=== PATIENT | female | born 1995 | race Caucasian/White ===

== ENCOUNTER 2020-01-18 13:26 | Emergency (ER) | payer OTHER, SELFPAY ==
[2020-01-18 13:35] VITALS: BP 136/87; PULSE 77; RESP 16; TEMP 37.1; O2SAT 98
--- NOTE | 2020-01-18 13:46 | ED.FEMALEGU ---
HPI - Female Genitourinary General Chief complaint: Urogenital-Female Stated complaint: 11wks preg; vaginal pain Time Seen by Provider: 01/18/20 13:45 Source: patient Mode of arrival: ambulatory Limitations: no limitations History of Present Illness HPI Narrative: The pt is a 24 y/o female who presents to the ED with c/o vaginal pain that began 2 days ago. The pt states that she is 11 weeks and having sharp pain on the rt side of her vagina. She describes this as feeling like something is sticking out and states that it is worsened with sitting. The pt denies vaginal bleeding, vaginal discharge, nausea, or vomiting. She says she has not been having intercourse and has not introduced anything into her vagina. The pt is A0 and has a SHx of a . Her [facility] DISPATCHER is Dr. Yanique Vieyra and she last had an US on the . MD elicited complaint: other (vaginal pain) Onset (ago): day(s) (2) Location of symptoms: vaginal (rt side of vagina) Vaginal discharge: none Vaginal bleeding: none Associated symptoms: denies other symptoms Related Data Home Medications Medication Instructions Recorded Confirmed No Home Medications 01/18/20 01/18/20 Allergies Allergy/AdvReac Type Severity Reaction Status Date / Time Sulfa (Sulfonamide Allergy Unknown Unknown Verified 01/18/20 13:39 Antibiotics) Review of Systems Review of Systems: All systems reviewed & are unremarkable except as noted in HPI and below Gastrointestinal: Gastrointestinal: Denies nausea and Denies vomiting Genitourinary: Genitourinary: Denies abnormal vaginal bleeding, Denies vaginal discharge and Reports other (vaginal pain) [facility] Past Medical History Medical History Asthma Surgical History Surgical History Previous section Family History Family History Father Hypertension Social History Social History Smoking status: Current every day smoker Tobacco type: cigarettes Alcohol intake: never Substance use type: marijuana Other substance usage details: States that she has also used methamphetamines. Last use: Roughly 1 month ago. Gender identity (if verbalized by the patient): Female Exam Const: General: no acute distress and alert Orientation/consciousness: patient oriented x3 HENMT: Mouth: Yes Normal oral and palatal mucosa present and Yes lip normal Throat: posterior oropharynx normal and tonsils normal Eyes: Conjunctivae: conjunctivae normal Pupils: Equal, round and reactive pupils present Resp: Effort & Inspection: normal respiratory effort GI: Inspection: non-distended GI Palp: Yes Soft to palpation, No Tenderness to palpation present (GI) and No Guarding due to palpation present (GI) : Speculum Exam - Vagina: abnormal vaginal discharge yellow Speculum Exam - Cervix: normal appearance of the cervix and Cervical os closed Other: there appears to be redness at urethral meatus at location at his pain Course Course Emergency Course: Patient presented with pain that appears to be located at her urethral meatus with redness and tenderness. PAtient also has copious amounts of cervical discharge. I reviewed patient's chart and she has history positive chlamydia so will treat presumptively and she will follow up with OBGYN Vital Signs Vital signs: Vital Signs Temperature 98.7 F 01/18/20 13:35 Pulse Rate 77 01/18/20 13:35 Respiratory Rate 16 01/18/20 13:35 Blood Pressure 136/87 01/18/20 13:35 Pulse Oximetry 98 01/18/20 13:35 Temperature 98.7 F 01/18/20 13:35 Pulse Rate 77 01/18/20 13:35 Respiratory Rate 16 01/18/20 13:35 Blood Pressure 136/87 01/18/20 13:35 Pulse Oximetry 98 01/18/20 13:35 MDM - Female Genitourinary Lab Data Labs: Lab Results
[2020-01-18 15:13] LABS: Add Urine Microscopic? NO; Appearance Urine Clear (Clear); Bilirubin Urine Negative (Negative); Blood Urine Negative (Negative); Color Urine Yellow (Yellow); Glucose Urine UA Negative (Negative); Ketones Urine Negative (Negative); Leukocyte Esterase Ur Negative LEU/UL (Negative); Nitrate Urine Negative (Negative); Protein Urine Negative (Negative); Specific Grav Ur 1.013 (1.001-1.035); Urobilinogen Urine Negative mg/dL (<2.0)
[2020-01-18] MEDS: LIDOCAINE HCL 1% LOCAL INJ 20 ML VIAL (16:05)
[2020-01-18] MEDS: AZITHROMYCIN 250 MG TABLET 1000 MG PO (16:05)
[2020-01-18] MEDS: cefTRIAXone 250 MG VIAL IM (16:05)
== END 2020-01-18 16:07 | disposition home or self-care (01) ==
PROVIDERS: Emergency Provider General Practice; Family Provider Internal Medicine
DX: O23.21 Infections of urethra in pregnancy, first trimester (principal); O99.511 Diseases of the respiratory system complicating pregnancy, first trimester; J45.909 Unspecified asthma, uncomplicated; O99.331 Smoking (tobacco) complicating pregnancy, first trimester; F17.210 Nicotine dependence, cigarettes, uncomplicated; Z3A.11 11 weeks gestation of pregnancy
CPT/HCPCS: 81003; 87070; 87491; 87591; 87808; 96372; 99284; A9270; J0696

== ENCOUNTER 2020-07-07 06:48 | Observation (INO) | payer OTHER, SELFPAY ==
[2020-07-07 07:07] VITALS: BMI 46.5
--- NOTE | 2020-07-07 07:08 | OBADM ---
This patient, Genie Ching, admitted to the OB room OB Post 115 for observation. Patient/family oriented to hospital policies and general routines including ID bracelet, bed and alarms, visiting hours, pain management, procedures, bathroom and other care routines, personal items, smoking policy, room service/diet, and visiting hours. Patient/Family are encouraged to report perceived risks to care and to ask questions if they do not understand what they are told or what they should do.
[2020-07-07 07:16] VITALS: BP 121/73; PULSE 66
[2020-07-07] MEDS: ACETAMINOPHEN 500 MG TABLET 1000 MG PO (07:27)
[2020-07-07 07:28] LABS: Add Urine Microscopic? YES; Appearance Urine Cloudy (Clear); Bacteria Urine Trace /hpf; Bilirubin Urine Negative (Negative); Blood Urine Negative (Negative); Color Urine Yellow (Yellow); Glucose Urine UA Negative (Negative); Ketones Urine Negative (Negative); Leukocyte Esterase Ur Negative LEU/UL (NEGATIVE); Mucus Urine Rare /lpf; Nitrate Urine Negative (Negative); Protein Urine Negative (Negative); RBC Urine 0-2 /hpf (0-2); Squamous Epithelial Cell Urine Many /hpf (Few); Urobilinogen Urine Negative mg/dL (<2.0)
[2020-07-07 07:31] VITALS: BP 119/62; PULSE 65
[2020-07-07 07:46] VITALS: BP 110/56; PULSE 58
[2020-07-07 08:01] VITALS: BP 120/64; PULSE 70
--- NOTE | 2020-07-07 08:12 | P.PNOB_ITS ---
OB - Triage/Final Diagnosis Visit Information Date of evaluation: 07/07/20 Reason for evaluation: threatened labor Evaluation Baseline heart rate: 135 Variability: Moderate (11-25) monitor accelerations: Present monitor decelerations: None Laboratory results: Laboratory Tests 07/07/20 07:16 Urine Color Yellow Urine Appearance Cloudy H Urine pH 6.0 Ur Specific [place] 1.020 Urine Protein Negative Urine Glucose (UA) Negative Urine Ketones Negative Ur Blood (Man) Negative Urine Nitrate Negative Urine Bilirubin Negative Urine Urobilinogen Negative Ur Leukocyte Esterase Negative Urine RBC 0-2 Urine WBC 4-6 H Ur Squamous Epith Cells Many H Urine Bacteria Trace Urine Mucus Rare Vital signs: Vital Signs - 24 hr 07/07/20 07:16 07/07/20 07:31 07/07/20 07:46 Pulse Rate 66 65 58 L Blood Pressure 121/73 119/62 110/56 L 07/07/20 08:01 Pulse Rate 70 Blood Pressure 120/64
[2020-07-07 08:16] VITALS: BP 120/88; PULSE 66
== END 2020-07-07 08:29 | disposition home or self-care (01) ==
PROVIDERS: Admitting Provider Student in an Organized Health Care Education/Training Program; Visit Provider Student in an Organized Health Care Education/Training Program
DX: O47.9 False labor, unspecified (principal); Z3A.00 Weeks of gestation of pregnancy not specified
CPT/HCPCS: 81001; 87086; A9270; G0378; G0379

== ENCOUNTER 2020-07-16 12:29 | Observation (INO) | payer OTHER, SELFPAY ==
[2020-07-16 13:00] VITALS: BP 111/63; PULSE 91; BMI 46.5
[2020-07-16 13:15] VITALS: BP 106/63; PULSE 117
[2020-07-16 13:30] VITALS: BP 117/58; PULSE 98
[2020-07-16 13:45] VITALS: BP 97/55; PULSE 94
[2020-07-16 14:00] VITALS: BP 104/59; PULSE 99
[2020-07-16 14:16] VITALS: BP 98/60; PULSE 99
--- NOTE | 2020-07-16 14:52 | OBADM ---
This patient, Genie Ching, admitted to the OB room OB Post 117 for observation. Patient/family oriented to hospital policies and general routines including ID bracelet, bed and alarms, visiting hours, pain management, procedures, bathroom and other care routines, personal items, smoking policy, room service/diet, and visiting hours. Patient/Family are encouraged to report perceived risks to care and to ask questions if they do not understand what they are told or what they should do.
--- NOTE | 2020-07-30 09:23 | PM.OBTRLD ---
OB - Triage/Final Diagnosis Visit Information Date of evaluation: 07/16/20 Reason for evaluation: threatened labor
== END 2020-07-16 14:36 | disposition home or self-care (01) ==
PROVIDERS: Admitting Provider Student in an Organized Health Care Education/Training Program; Visit Provider Student in an Organized Health Care Education/Training Program
DX: O26.899 Other specified pregnancy related conditions, unspecified trimester (principal); R10.9 Unspecified abdominal pain; Z3A.00 Weeks of gestation of pregnancy not specified
CPT/HCPCS: G0378; G0379

== ENCOUNTER 2020-07-24 11:10 | Outpatient (CLI) | payer OTHER, SELFPAY ==
[2020-07-24 11:50] LABS: Hematocrit 34.6 % (37.0-47.0); Hemoglobin 11.7 g/dL (12.0-15.0); Mean Corpuscular HGB Conc 33.8 g/dl (32-36); Mean Corpuscular Hemoglobin 29.5 pg (26-34); Mean Corpuscular Volume 87.4 fl (80-100); Mean Platelet Volume 11.1 fl (7.4-10.4); Platelet Count Result 177 k/mm3 (150-375); Red Blood Count 3.96 M/mm3 (4.2-5.4); Red Cell Distribution Width 13.3 % (11.5-14.5); White Blood Count 9.4 K/mm3 (4.5-10.0)
[2020-07-26 11:33] LABS: Rapid Plasma Reagin Non-Reactive (NonReactive)
== END 2020-07-24 11:11 | disposition home or self-care (01) ==
PROVIDERS: Visit Provider Student in an Organized Health Care Education/Training Program
DX: Z01.818 Encounter for other preprocedural examination (principal)
CPT/HCPCS: 36415; 85027; 86592; 86850; 86900; 86901

== ENCOUNTER 2020-07-26 09:52 | Inpatient (IN) | payer OTHER, SELFPAY ==
[2020-07-26] VITALS (42 sets, daily range): BP systolic 84–126; BP diastolic 48–78; PULSE 48–70; RESP 15–18; TEMP 36.1–36.6; O2SAT 97–100; BMI 46.5
--- NOTE | 2020-07-26 09:27 | WPDANESEPP ---
Anes - Eval Pre Procedure Procedure: Operation Date: 07/26/20 12:00 Proposed Procedures p Repeat Section - Mark Ortiz MD Date/Time: 07/26/20 09:27 Pre Op Diagnosis: Prior Patient Data Age: 24 Gender: F Height: Weight: Allergies Allergy/AdvReac Type Severity Reaction Status Date / Time Sulfa (Sulfonamide Allergy Unknown Unknown Verified 01/18/20 13:39 Antibiotics) Home Medications Medication Instructions Recorded Confirmed Type No Home Medications 01/18/20 07/07/20 History Patient hx anesthesia problems: none Family hx anesthesia problems: none PMFSH Past Medical History Medical History (Updated 07/26/20 @ 09:29 by David Coats CRNA) Asthma Polysubstance abuse Tobacco abuse Surgical History Surgical History Previous section Family History Family History Father Hypertension Social History Social History Smoking status: Current every day smoker Tobacco type: cigarettes Alcohol intake: never Substance use type: marijuana Other substance usage details: States that she has also used methamphetamines. Last use: Roughly 1 month ago. Gender identity (if verbalized by the patient): Female Exam Day of Procedure 07/26/20 09:27 Patient weight: overweight Neurological: alert and oriented
--- NOTE | 2020-07-26 09:32 | PM.IMHP ---
H&P: HPI History of Present Illness Date/Time: 07/26/20 09:32 Chief complaint: Prior Narrative: Genie Ching is a 24 year old female at 39w0d who presents for repeat section. Pt has been complicated by history of prior , IVDU, THC use, rubella non-immune status. She had an elevated GCT but a normal GTT. She denies regular contractions, vaginal bleeding, or leakage of fluid. She endorses good movement. Review of Systems Cardiovascular: Cardiovascular: Denies chest pain, Denies leg edema, Denies palpitations, Denies dyspnea and Denies dyspnea on exertion Respiratory: Respiratory: Denies cough, Denies dyspnea and Denies dyspnea on exertion Gastrointestinal: Gastrointestinal: Denies abdominal pain, Denies constipation, Denies diarrhea, Denies nausea and Denies vomiting Genitourinary: Genitourinary: Denies hematuria, Denies urinary frequency, Denies dysuria, Denies pelvic pain, Denies urinary incontinence and Denies vaginal discharge Neurologic: Reports system reviewed and no additional complaints, except as documented Psychiatric: Psychiatric: Reports no additional psychiatric complaints Endocrine: Endocrine: Denies palpitations PMF Past Medical History Medical History (Updated 07/26/20 @ 09:36 by Mark Ortiz MD) Asthma Polysubstance abuse Tobacco abuse Surgical History Surgical History Previous section Family History Family History Father Hypertension Social History Social History Smoking status: Current every day smoker Tobacco type: cigarettes Alcohol intake: never Substance use type: marijuana Other substance usage details: States that she has also used methamphetamines. Last use: Roughly 1 month ago. Gender identity (if verbalized by the patient): Female Meds Home Medications and Allergies Home Medications Medication Instructions Recorded Confirmed Type No Home Medications 01/18/20 07/07/20 History Allergies Allergy/AdvReac Type Severity Reaction Status Date / Time Sulfa (Sulfonamide Allergy Unknown Unknown Verified 01/18/20 13:39 Antibiotics) Exam Const: General: no acute distress Eyes: EOM: EOMs intact bilaterally Neck: Neck: supple Thyroid: thyroid normal Chest: Breast/axilla inspection: normal inspection of the breasts Breast/axilla palpation: normal palpation of the breasts, normal palpation of the axillae and no axillary lymphadenopathy Resp: Effort & Inspection: normal respiratory effort Auscultation: clear to auscultation bilaterally Cardio: Rate: regular rate Rhythm: regular rhythm GI: Inspection: non-distended GI Palp: Yes Soft to palpation, No Tenderness to palpation present (GI) and No Guarding due to palpation present (GI) Auscultation: normal bowel sounds Other: Gravid, non-tender : General: No bladder normal to palpation External Female Exam: normal external appearance Speculum Exam - Vagina: normal vaginal discharge and No vaginal bleeding Speculum Exam - Cervix: nontender Bimanual exam- vagina & uterus: No bladder normal to palpation, No Cervical tenderness present and other (Gravid, non-tender) OB/external & speculum: No vaginal bleeding Skin: General skin exam: normal color and no rashes or lesions noted Neuro: Cognition (Neuro): normal cognition Speech: normal speech Extrem: General: normal to inspection and no edema Psych: Mental Status: mental status grossly normal Affect: normal affect Assessment and Plan Assessment and plan (1) Supervision of high risk , unspecified, third trimester: Code(s): O09.93 - Supervision of high risk , unspecified, third trimester Status: Acute Assessment and Plan: 24 yo at 39w0d prior c/s-desires repeat Rh+
[2020-07-26] MEDS: LACTATED RINGERS 1,000 ML 125 ML IV CONT ×2 (10:58→12:30)
--- NOTE | 2020-07-26 12:00 | LDADM ---
This patient, Genie Ching, was admitted to OB Post 116 on 07/26/20 at 09:52. Plans for labor, pain management and were discussed with patient. Patient/family oriented to hospital policies and general routines including ID bracelet, bed and alarms, visiting hours, pain management, procedures, bathroom and other care routines, personal items, smoking policy, room service/diet and guest tray routines, infant security routines, call light, and visiting hours. Patient/Family are encouraged to report perceived risks to care and to ask questions if they do not understand what they are told or what they should do. See OBIX for further documentation.
--- NOTE | 2020-07-26 12:17 | WPDANESEFPP ---
Anes - Eval Final PreProcedure Day of Procedure 07/26/20 12:17 Patient weight: morbidly obese Heart: regular rate and rhythm Lungs: clear to auscultation Airway: Mallampati scale class II Neurological: alert and oriented Last oral intake: >/= 8 hours ASA classification: III Emergent: no Anesthetic plan: proceed Anesthesia type and monitoring: regional spinal and standard monitoring Informed Consent: The patient's anesthetic plan and its attendant risks and benefits were discussed with the patient/family/POA. Questions were solicited and answers provided to the satisfaction of the patient/family/POA.
[2020-07-26] MEDS: ceFAZolin 2 GM/D5W 50 ML 2 GM/50 ML BAG IVPB (12:30)
[2020-07-26 13:17] LABS: Amphetamine Screen Urine Negative (Negative); Barbiturate Screen Urine Negative (Negative); Benzodiazepines Screen Urine Negative (Negative); Cannabinoid Screen Urine Positive (Negative); Cocaine Screen Urine Negative (Negative); Methadone Screen Urine Negative (Negative); Opiate Screen Urine Negative (Negative); Phencyclidine Screen Urine Negative (Negative)
[2020-07-26] MEDS: KETOROLAC 30 MG/ML VIAL (*BKC) IV PUSH ×2 (13:55→19:44)
--- NOTE | 2020-07-26 13:55 | PM.PROC ---
Procedure Note - Detailed Date of procedure: 07/26/20 Pre-op diagnosis: Repeat C section prior c/section x1 Post-op diagnosis: same Procedure performed: repeat low transverse section Description of procedure: The patient was taken to the operating room where epidural anesthesia was found to be adequate. She was then prepped and draped in the usual sterile fashion in the dorsal supine position with a leftward tilt. A Pfannenstiel skin incision was then made with the scalpel and carried through to the underlying layer of fascia. The fascia was then incised in the midline and the incision extended laterally with the Sanchez scissors. The superior aspect of the fascia was then grasped with the Antonina clamps, elevated, and the underlying rectus muscles dissected off bluntly and sharply. Attention was then turned to the inferior aspect of this incision which, in a similar fashion, was grasped, tented up with the Antonina clamps, and the rectus muscles dissected off both bluntly and sharply. The rectus muscles were then in the midline, and the peritoneum identified, tented up, and entered sharply with the Metzenbaum scissors. The peritoneal incision was then extended superiorly and inferiorly with good visualization of the bladder. The peritoneum and preperitoneal adipose tissue were intimately adherent to the rectus muscles. This adhesions was dissected off with Bovie cautery. The bladder blade was then inserted and the vesicouterine peritoneum identified, grasped with the pick-ups and entered sharply with the Metzenbaum scissors. This incision was then extended laterally and the bladder flap created digitally. The bladder blade was then reinserted and the lower uterine segment incised in a low, transverse fashion with the scalpel. The uterine incision was then extended laterally with the bandage scissors. The bladder blade was removed and the ?s head delivered atraumatically. The nose and mouth were suctioned with the bulb suction, and the remainder of the infant was delivered atraumatically. The cord was clamped and cut. The infant was handed off to the waiting pediatricians (staff). Cord gasses were sent. The placenta was then removed manually, the uterus exteriorized, and cleared of all clots and debris. The uterine incision was repaired with 0 monocryl in a running, locking fashion. A second imbricating layer of 0-monocryl was also placed. The uterus was returned to the abdomen. The uterus was then reinspected to ensure hemostasis as were all subfascial tissues. The peritoneal adipose tissue was reduced through the midlilne incision. The muscles were re-approximated with 3-0 vicryl with interuptted mattress sutures. The fascia was reapproximated with 0 vicryl in a running fashion. The subcutaneous tissue was reapproximated using 3-0 Vicryl in a running fashion. The skin was closed with 4-0 vicryl. The patient tolerated the procedure well. Sponge, lap and needle counts were correct times three. The patient was taken to the recovery room in stable condition. Anesthesia: epidural Surgeon: Mark Ortiz MD Estimated blood loss (mL): 630 IV fluids (mL): 1,000 Urine output (mL): 150 Drains: No Packing: No Pathology: none sent Complications: No immediate complications Condition: stable Disposition: floor ( ) Findings: dense adhesions of the peritoneum and peritoneal adipose tissue to the rectus muscles, normal appearing fallopian tubes and ovaries bilaterally
[2020-07-26] MEDS: LORATADINE 10 MG TABLET PO (14:38)
[2020-07-26] MEDS: OXYTOCIN 30 UNITS/NS 500 ML 30 UNITS/500 ML BAG 125 UNITS IV CONT (16:12)
--- NOTE | 2020-07-26 16:22 | PC.NURSE ---
Patient transferred to post room #286 per stretcher from labor and delivery. Support person present. Oriented to unit, room, information board, rooming in, admission packet and security measures. Patient verbalizes understanding.
[2020-07-26] MEDS: DEXTROSE 5%/0.45% SOD CHL 1,000 ML 125 ML IV CONT (19:45)
[2020-07-27] VITALS: BP 97/50; PULSE 68; RESP 16; TEMP 36.9; O2SAT 99
[2020-07-27 00:15] VITALS: PULSE 68; RESP 16; O2SAT 99
[2020-07-27 04:40] VITALS: BP 95/57; PULSE 54; RESP 16; TEMP 36.6; O2SAT 98
[2020-07-27 05:36] LABS: Basophils Absolute Auto 0.1 K/mm3 (0.0-0.1); Basophils Percent Auto 0.5 % (0.2-1.2); Eosinophils Absolute Auto 0.3 K/mm3 (0-0.3); Hematocrit 29.9 % (37.0-47.0); Hemoglobin 9.8 g/dL (12.0-15.0); Immature Granulocyte Absolute 0.07 K/mm3 (0.00-0.031); Immature Granulocyte Percent A 0.7 % (0-0.5); Lymphocytes Absolute Auto 1.86 K/mm3 (0.9-3.2); Lymphocytes Percent Auto 19.3 % (18.3-44.2); Mean Corpuscular HGB Conc 32.8 g/dl (32-36); Mean Corpuscular Hemoglobin 28.8 pg (26-34); Mean Corpuscular Volume 87.9 fl (80-100); Monocytes Percent Auto 10.5 % (2.6-8.5); Neutrophils Absolute Auto 6.3 K/mm3 (1.3-6.7); Platelet Count Result 153 k/mm3 (150-375); Red Cell Distribution Width 13.6 % (11.5-14.5); White Blood Count 9.6 K/mm3 (4.5-10.0)
--- NOTE | 2020-07-27 07:30 | P.PNOB_ITS ---
OB - PN: Subj Subjective Date/time seen: 07/27/20 07:30 Interval history: Patient doing well this AM. She is ambulating out of bed. Her batres catheter was removed but she has not voided spontaneously. She is tolerating PO. She reports adequate pain control. Patient comments: no complaints, pain well controlled, tolerating diet and flatus present OB - PN: Obj Data Labs CBC & Chem 7: 07/27/20 05:24 Labs: Laboratory Results - last 24 hr 07/26/20 07/27/20 12:44 05:24 WBC 9.6 RBC 3.40 L Hgb 9.8 L Hct 29.9 L MCV 87.9 MCH 28.8 MCHC 32.8 RDW 13.6 Plt Count 153 MPV 11.0 H Immature Gran % (Auto) 0.7 H Neut % (Auto) 66.0 Lymph % (Auto) 19.3 [place] % (Auto) 10.5 H Eos % (Auto) 3.0 Baso % (Auto) 0.5 Lymph # (Auto) 1.86 [place] # (Auto) 1.0 H Eos # (Auto) 0.3 Baso # (Auto) 0.1 Abs Immat Gran (auto) 0.07 H Absolute Neuts (auto) 6.3 Absolute Nucleated RBC 0.0 Nucleated RBC % 0.0 Urine Opiates Screen Negative Urine Methadone Screen Negative Ur Barbiturates Screen Negative Ur Phencyclidine Scrn Negative Ur Amphetamine Screen Negative U Benzodiazepines Scrn Negative Urine Cocaine Screen Negative U Cannabinoids Screen Positive A OB - PN A/P Plan day: 1 Plan: routine care Comments: patient doing well H/H stable afebrile, VSS incision covered with JUAN A dressing, small amount of blood saturation batres removed plan for circumcision today, parents consented continue routine post op care Time Spent With Patient Time: Total time spent is greater than 50% in coordination of care (as d ocumented) at patient's floor/unit and/or counseling patient: Time with patient: less than 15 minutes Review of Systems Constitutional: Constitutional: Reports no additional constitutional complaints Cardiovascular: Cardiovascular: Reports no additional cardiovascular complaints Respiratory: Respiratory: Reports no additional respiratory complaints Gastrointestinal: Gastrointestinal: Reports no additional gastrointestinal complaints Genitourinary: Genitourinary: Reports no additional female genitourinary complaints Exam Const: General: comfortable and no acute distress Resp: Effort & Inspection: normal respiratory effort Auscultation: clear to auscultation bilaterally Cardio: Rate: regular rate GI: GI Palp: Yes Soft to palpation, Yes Tenderness to palpation present (GI) (around incision ) and No Guarding due to palpation present (GI) Auscultation: normal bowel sounds Other: incision C/D/I, covered with Dermabond Psych: Appearance: grossly normal Mental Status: mental status grossly normal Affect: normal affect
--- NOTE | 2020-07-27 07:44 | WPDANLDNPN2 ---
Anes-Prog Note L&D-Neuraxial Date/Time: 07/27/20 07:44 Neuraxial medications: intrathecal PF morphine Opiod-related complaints: none Patient feedback: Patient satisfied with post-operative pain management.
--- NOTE | 2020-07-27 07:44 | WPDANLDPN2 ---
Anes-Prog Note L&D Date/Time: 07/27/20 07:44 Comfortable throughout: section Neuraxial method: spinal Epidural/Spinal procedure site: clean & non-tender Neuro status: Neuro function grossly intact. Cardiovascular status: normal Respiratory status: normal Airway patency: baseline Mental status: baseline Post-Op hydration status: normal Vital Signs: Last Vital Signs Temp 36.6 C 07/27/20 04:40 Pulse 54 L 07/27/20 04:40 Resp 16 07/27/20 04:40 BP 95/57 L 07/27/20 04:40 Pulse Ox 98 07/27/20 04:40 I/O: Intake & Output 07/26/20 07/26/20 07/27/20 15:59 23:59 07:59 Intake Total 2050 980 500 Output Total 780 450 650 Balance 1270 530 -150 Post-procedural complaints: none Patient feedback: Patient satisfied with anesthetic care.
[2020-07-27 07:45] VITALS: BP 95/53; PULSE 56; RESP 18; TEMP 37.3; O2SAT 97
[2020-07-27] MEDS: MULTIVIT/MIN/PREN/FOL AC/IRON TABLET 1 TAB PO (09:25)
[2020-07-27] MEDS: DOCUSATE SODIUM 100 MG CAPSULE PO ×2 (09:26→16:28)
[2020-07-27] MEDS: POLYSACCHARIDE IRON COMPLEX 150 MG CAPSULE PO ×2 (09:26→16:28)
[2020-07-27] MEDS: SIMETHICONE 80 MG TAB.CHEW PO ×3 (09:26→23:19)
[2020-07-27] MEDS: IBUPROFEN 600 MG TABLET PO ×3 (09:27→23:18)
--- NOTE | 2020-07-27 09:53 | PCCCNOTE ---
Care Coordination. Patient referred to CC for positive marijuana UDS and history of meth use. Baby's UDS was negative and meconium is pending. RN and doctor's documentation indicate pt. has used meth in last month. We did not have positive drug screens in records. Pt. denies this reporting she is on probation and has urine drug screens. She reports she has not used meth for a year. She has not had substance abuse treatment, but quit on her own. She reports having a 5 year old daughter that is living with pt's mother who has temporary guardianship since pt. had history of meth use. Pt. denies prior [facility] involvement. She plans to return home with /FOB, Eliezer. RN reports pt. did not have stable home, but pt. reports they have a one bedroom apartment and all necessary baby supplies. She is also setup with [facility] and reports having good family support. Spoke with Fran Zaldivar from [facility] hotline who will take pt.'s situation as report (Intake ID# [id number]). Will follow.
[2020-07-27 11:34] VITALS: BP 96/48; PULSE 56; RESP 16; TEMP 37.2; O2SAT 95
--- NOTE | 2020-07-27 13:00 | PC.NURSE ---
Mother called for assist with feeding. Mother reports her plans are to breast and bottle feed. Reviewed feeding cues, frequencies, duration of feedings, feeding elimination flow sheet, and signs of adequate intake. Demonstrated stimulation techniques to wake infant for feeding. Assisted with infant to breast. Reviewed positioning/alignment in cross cradle, holding breast in U hold and guided asymmetrical latch on. Discussed rational for each. Several attempts before was able to latch correctly. Infant nursed eagerly with steady draws and occasional swallowing followed by long pausing. Reviewed signs of a correct latch, effective nursing and suck swallow ratio. was able to maintain latch without discomfort to mother. Nipple care reviewed. Instructed mother to call out for RN assistance if she is unable to latch infant for feeding or she has discomfort with nursing. Suggested mother stimulate while feeding to keep infant awake and nursing effectively for increased intake and to assist with maintaining deep latch. Instructed feeding should be initiated three hours from start of last feeding or if feeding cues are noted before. Mother voiced understanding of information shared.
--- NOTE | 2020-07-27 17:35 | PC.NURSE ---
1520 . [facility] [employer] Material Inspector Kristopher Florez here to see pt. Report was given to him. He did not have his credentials. No DCFS ID badge, No Drivers Licence, No State ID. Called Jade Bernal RN to see what needed to be done? She stated to have him call his film processing shift supervisor to verify his Credentials. This RN called DCFS @ 1533 and verified his credentials. Kristopher wanted patient info from the chart without the proper credentials. This RN questioned whether or not this should be done. Kristopher stated that he has a [facility] release of information form he could have the patient sign, could we use that? Spoke with the district court administrator and we decided to use this form and give him the patient information. This form is on the hard chart. The patient voiced displeasure in not knowing that [facility] was going to make a visit. This RN apologized and stated that Care Coordination should have informed her of this.
[2020-07-27 20:05] VITALS: BP 116/50; PULSE 61; RESP 12; TEMP 37
[2020-07-28] MEDS: SIMETHICONE 80 MG TAB.CHEW PO ×2 (04:00→08:10)
--- NOTE | 2020-07-28 07:07 | P.DS_ITS ---
DS: Admitting Diagnosis Admitting Diagnosis Admitting Diagnosis: Repeat C section OB - DS: Summary OB Procedures : None OB Procedures Intrapartum: OB Procedures: : None Peripartum Data Infant Delivery Method: Section Procedures: Procedures Operation Date: 07/26/20 12:00 Actual Procedures Side Surgeon p Repeat Section Not Applicable Mark Ortiz MD complications: none Status at Discharge Functional status at discharge: independent ambulation Overall status at discharge: patient is progressing back to baseline Time Spent with Patient Time attestation: Total time spent providing and/or coordinating discharge services: Time spent: Less than 30 minutes Exam Const: General: comfortable and no acute distress Resp: Effort & Inspection: normal respiratory effort Auscultation: clear to auscultation bilaterally Cardio: Rate: regular rate GI: Inspection: non-distended GI Palp: Yes Soft to palpation, No Firmness to palpation present (GI), Yes Tenderness to palpation present (GI) (mild tenderness over incision ) and No Guarding due to palpation present (GI) Auscultation: normal bowel sounds Psych: Appearance: grossly normal Mental Status: mental status grossly normal Discharge Plan Discharge Discharging Clinician: Mark Ortiz Patient Disposition: Home, Self-Care Activity: may shower, as tolerated and pelvic rest Diet: regular Discharge Instructions: call or return for temperature >100.4, bleeding >2 pads/hr for 2 hrs, pain not controlled with medications, signs/symptoms of mastitis Patient Instructions: Antibiotic Form, Vaginal Delivery (DC) Stand Alone Forms: General Discharge Information Follow-up/Referrals: Mark Ortiz MD [Physician] - 1 Week Discharge Medications: New hydrocodone-acetaminophen 5-325 mg Tablet 1 tab PO Q3H PRN (Reason: Moderate Pain (4-6)) Qty: 28 RF: 0 Ifv-V-Haxosf Cream 1 applic topical PRN PRN (Reason: Sore Nipples) Qty: 1 RF: 0 docusate sodium 100 mg Capsule 100 mg PO BID Qty: 30 RF: 0 polysaccharide iron complex 150 mg iron Capsule 150 mg PO BIDWM Qty: 60 RF: 0 ibuprofen 600 mg Tablet 600 mg PO Q6H PRN (Reason: Cramping) Qty: 30 RF: 0 No Action No Home Medications RF: 0 Date of admission: 07/26/20 09:52 Primary Care Provider: PHYSICIAN,TRAINING GENERALIST Admitting Provider: Mark Ortiz Attending physician on admission: Mark Ortiz
--- NOTE | 2020-07-28 07:26 | WPDANLDPN2 ---
Anes-Prog Note L&D Date/Time: 07/28/20 07:26 Comfortable throughout: section Neuraxial method: spinal Epidural/Spinal procedure site: clean & non-tender Neuro status: Neuro function grossly intact. Cardiovascular status: normal Respiratory status: normal Airway patency: baseline Mental status: baseline Post-Op hydration status: normal Vital Signs: Last Vital Signs Temp 37.0 C 07/27/20 20:05 Pulse 61 07/27/20 20:05 Resp 12 07/27/20 20:05 BP 116/50 L 07/27/20 20:05 Pulse Ox 95 07/27/20 11:34 I/O: Intake & Output 07/27/20 07/27/20 07/28/20 15:59 23:59 07:59 Output Total 175 Balance -175 Post-procedural complaints: none Patient feedback: Patient satisfied with anesthetic care.
--- NOTE | 2020-07-28 07:26 | WPDANLDNPN2 ---
Anes-Prog Note L&D-Neuraxial Date/Time: 07/28/20 07:26 Neuraxial medications: intrathecal PF morphine Opiod-related complaints: none Patient feedback: Patient satisfied with post-operative pain management.
--- NOTE | 2020-07-28 07:50 | PC.NURSE ---
Mother is able to independently latch infant with appropriate positioning/alignment. She denies any nipple discomfort, is feeding as required and waking to feed if needed. has had several effective feedings in the past 24 hours, and is currently meeting outcomes for weight, output, jaundice and feeding frequencies. Mother chooses to bottle feed at times and will freq bottle feed after . Discussed stimulation and milk supply. Mother states she will continue to breast and bottle feed. Mother states she feels confident to continue current feeding plan at home. Reviewed transition to breast milk, signs of adequate intake, and engorgement/relief. Instructed to call ICP if intake/output less than required. Reviewed regular medications mother is taking. Information provided per Helga. Reviewed community resources on the [facility] website and in the Mom/Baby guide. Information on outpatient services provided. Mother has no further questions at this time.
[2020-07-28] MEDS: IBUPROFEN 600 MG TABLET PO ×2 (08:10→17:10)
[2020-07-28] MEDS: MULTIVIT/MIN/PREN/FOL AC/IRON TABLET 1 TAB PO (08:10)
[2020-07-28] MEDS: DOCUSATE SODIUM 100 MG CAPSULE PO ×2 (08:10→17:09)
[2020-07-28] MEDS: POLYSACCHARIDE IRON COMPLEX 150 MG CAPSULE PO ×2 (08:10→17:09)
[2020-07-28 08:20] VITALS: BP 120/63; PULSE 69; RESP 16; TEMP 36.8; O2SAT 100
--- NOTE | 2020-07-28 08:58 | PCCCNOTE ---
Care Coordination. Spoke with Julian Aguirre, gravity prospecting supervisor at [facility], who reports baby can go home with mother. He reports they will be starting services with family, but baby can be released home with mother and FOB. Per Xu Jordan with [facility], went out to see home yesterday and they are prepared to go home with baby. RNLilly, aware. Pt. likely to go home today and Julian Aguirre at [facility] aware.
--- NOTE | 2020-07-28 12:07 | PC.NURSE ---
0837 Megan from Care Coordination called and stated that DCFS is ok with being D/C'd home with Mother. They will follow up in the home after D/C.
[2020-07-28] MEDS: TETANUS,DIPHTHERIA,AC PERTUSSIS ADULT (0.5 ML) BOOSTRIX IM (13:36)
[2020-07-28] MEDS: MEASLES,MUMPS,RUBELLA VACCINE 0.5 ML VIAL SUB-Q (13:38)
--- NOTE | 2020-07-28 18:40 | PC.NURSE ---
Patient viewed the discharge video Mother & Baby Care, The First Two Weeks . Patient was given the opportunity and encouraged to ask questions. Patient verbalized understanding of information shared and has been given the mother/baby guide for home reference.
[2020-07-30 09:36] VITALS: BP 114/66; PULSE 53; RESP 20; O2SAT 98
== END 2020-07-28 17:57 | disposition home or self-care (01) | DRG 540 ==
LOC: ANHOBPP 13:52 → ANHOB2 16:30
PROVIDERS: Admitting Provider Student in an Organized Health Care Education/Training Program; Visit Provider Student in an Organized Health Care Education/Training Program
PROC: 10D00Z1 Extraction of Products of Conception, Low, Open Approach (ICD-10-PCS; CPT 59514; principal; 2020-07-26 12:00)
DX: O34.211 Maternal care for low transverse scar from previous cesarean delivery (principal); Z37.0 Single live birth; Z3A.39 39 weeks gestation of pregnancy; F17.210 Nicotine dependence, cigarettes, uncomplicated; O99.52 Diseases of the respiratory system complicating childbirth; J45.909 Unspecified asthma, uncomplicated; O99.334 Smoking (tobacco) complicating childbirth; O99.324 Drug use complicating childbirth; F15.90 Other stimulant use, unspecified, uncomplicated; E66.01 Morbid (severe) obesity due to excess calories; F12.90 Cannabis use, unspecified, uncomplicated; O99.214 Obesity complicating childbirth
CPT/HCPCS: 36415; 80307; 85025; 90710; 90715; A9270; J0131; J0690; J1885; J2274; J2370; J2405; J2590; J7120

== ENCOUNTER 2020-08-13 11:14 | Emergency (ER) | payer OTHER, SELFPAY ==
--- NOTE | ~2020-08-13 | XR_ITS ---
EXAMINATION: XR chest 2V EXAM DATE: 08/13/2020 11:38 INDICATION: Chest heaviness and wheezing. TECHNIQUE: Frontal and lateral projections of the chest obtained and reviewed. Comparison is made to prior examination from 11/15/16. FINDINGS: The lungs are clear. There are no pleural effusions. The cardiomediastinal silhouette is within normal limits. There is no pneumothorax suspected. The bones and soft tissues are unremarkab le. IMPRESSION: No acute cardiopulmonary findings. Reviewed, dictated and finalized at location A.
[2020-08-13 11:24] VITALS: BP 119/78; PULSE 52; RESP 20; TEMP 36.7; O2SAT 100
--- NOTE | 2020-08-13 11:34 | ED.URI ---
HPI - URI/Sore Throat General Chief Complaint: Upper Respiratory Infection Stated Complaint: upper respiratory infection Time Seen by Provider: 08/13/20 11:25 Source: patient Mode of arrival: ambulatory Limitations: no limitations History of Present Illness HPI Narrative: Genie Ching is a 24 yo female with a hx of asthma and Csection (07/26) who comes to care with asthma exacerbation/wheezing. She states that wheezing started about 10 days ago after she smoked a cigarette recreationally. She is usually a non-smoker. She has run out of her albuterol inhaler and continues to feel tight and wheezy. Today she is complaining of chest heaviness related to be wheezing Related Data Allergies Allergy/AdvReac Type Severity Reaction Status Date / Time Sulfa (Sulfonamide Allergy Unknown Unknown Verified 01/18/20 13:39 Antibiotics) Review of Systems Review of Systems: Narrative: CONSTITUTIONAL: Denies fever, chills, sweats. EYES: Denies visual changes, redness, discharge. ENT: Denies rhinorrhea, congestion, sore throat, otalgia. CARDIOVASCULAR: Denies chest pain, palpitations, edema. RESPIRATORY: Denies dyspnea, has wheezing, dry cough GASTROINTESTINAL: Denies abdominal pain, nausea, vomiting, diarrhea. GENITOURINARY: Denies dysuria, hematuria, abnormal discharge SKIN: Denies rash or itching. NEUROLOGIC: Denies numbness, or focal weakness. PSYCHIATRIC: Denies anxiety or depression. [facility] Past Medical History Medical History Asthma Polysubstance abuse Tobacco abuse Surgical History Surgical History Previous section Family History Family History Father Hypertension Social History Social History Smoking status: Former smoker Tobacco type: cigarettes Alcohol intake: never Substance use type: marijuana Other substance usage details: States that she has also used methamphetamines. Last use: Roughly 1 month ago. Gender identity (if verbalized by the patient): Female Comments At time of signature, I agree with nursing past medical, surgical, social and family history. There is no relevant family history pertinent to the presenting complaint. Exam Narrative: Exam Narrative: GENERAL: This is a well-nourished, well-developed patient, in mild distress. HEAD: normocephalic, atraumatic. EYES: Sclera clear/white. Vision is grossly intact. EARS: External ears normal, Hearing grossly intact. NOSE: External nose normal without nasal discharge, nares without redness, no rhinorrhea. THROAT: Mucous membranes moist, NECK: Neck supple, non-tender CARDIOVASCULAR: Regular rate and rhythm without murmurs, gallops, or rubs. RESPIRATORY: Diminished to auscultation. Breath sounds equal bilaterally. Has wheezes, rales, has rhonchi. GASTROINTESTINAL: Abdomen soft, SKIN: warm, intact with no suspicious lesions or rash, good texture and turgor. NEURO: awake, alert, and oriented to person, place and time. There were no obvious focal neurologic abnormalities. Steady gait EXTREMITIES: Normal range of motion. BACK: Nontender without deformity Course Course Emergency Course: Chest x-ray ordered- : No acute pulmonary process Initial assessment patient was wheezing in all espinal with rhonchi, cough. Given milligrams of Solu-Medrol plus DuoNeb nebulizer treatment Minus refill albuterol inhaler hesitate to give steroids because of breast-feeding Discussed with patient-patient is currently supplementing with formula so agreed to stimulate nipples but use formula for the next 3 to 4 days so she can get her prednisone dosage Post Nebulizer: Lungs clear to auscultation -patient states feels much better, no wheezing Started on 40 mg prednisone x4 days, given albuterol inhaler; follow-up with PCP Vit
[2020-08-13] MEDS: ALBUTEROL SULFATE NEB 2.5 MG/3 ML INH 1.25 MG INHALATION (11:43)
[2020-08-13] MEDS: IPRATROPIUM BR 0.02% INH SOLN 0.5 MG/2.5 ML VIAL INHALATION (11:45)
[2020-08-13] MEDS: methylPREDNISolone SOD SUCC 125 MG VIAL IM (11:50)
[2020-08-13 11:55] VITALS: PULSE 62; RESP 20; O2SAT 100
[2020-08-13 12:16] VITALS: BP 124/59; PULSE 63; RESP 20; O2SAT 100
== END 2020-08-13 12:16 | disposition home or self-care (01) ==
PROVIDERS: Emergency Provider Nurse Practitioner
DX: J45.901 Unspecified asthma with (acute) exacerbation (principal); Z87.891 Personal history of nicotine dependence
CPT/HCPCS: 71046; 94640; 96372; 99213; G0463; J2930

== ENCOUNTER 2020-10-15 06:15 | Emergency (ER) | payer OTHER, SELFPAY ==
--- NOTE | ~2020-10-15 | XR_ITS ---
EXAMINATION: XR chest 1V portable DATE: 10/15/2020 06:54 INDICATION: Cough. Shortness of breath. Midline chest pain. TECHNIQUE: A single frontal view of the chest was obtained. COMPARISON: Chest 2 views 08/13/2020 FINDINGS: The chest demonstrates clear lungs without pneumonia, pleural effusion, or pneumothorax. Th e heart size is normal. IMPRESSION: 1. No acute cardiopulmonary disease. Reviewed, dictated and finalized at location A. [employer]
[2020-10-15 06:17] VITALS: TEMP 36.8
[2020-10-15 06:26] VITALS: BP 149/99; PULSE 77; RESP 15; O2SAT 99
--- NOTE | 2020-10-15 06:31 | ED.ASTHMA ---
HPI - Asthma General Chief Complaint: Asthma Stated Complaint: diff breathing Time Seen by Provider: 10/15/20 06:25 History of Present Illness HPI Narrative: Patient is a 24-year-old female who presents emergency department with chief complaint of shortness of breath. Patient reports she has history of asthma states that couple weeks ago she was treated with a course of steroids but now has had return of her symptoms. Patient reports she has been wheezing reports has had a light cough denies fever or chills reports she has had no exposure to COVID-19. Patient does report that she has had a change in her taste and smell though. Related Data Allergies Allergy/AdvReac Type Severity Reaction Status Date / Time Sulfa (Sulfonamide Allergy Unknown Unknown Verified 10/15/20 06:16 Antibiotics) Review of Systems Review of Systems: Narrative: CONSTITUTIONAL: Denies fever, chills, or sweats. EYES: Denies visual changes, redness, or discharge. ENT: Denies rhinorrhea, congestion, sore throat, or otalgia. CARDIOVASCULAR: Denies chest pain, palpitations, or edema. RESPIRATORY: Denies cough or dyspnea. GASTROINTESTINAL: Denies abdominal pain, nausea, vomiting, or diarrhea. GENITOURINARY: Denies dysuria or hematuria. SKIN: Denies rash or itching. MUSCULOSKELETAL: Denies back pain, joint pain, or myalgia. NEUROLOGIC: Denies headache, numbness, or weakness. PSYCHIATRIC: Denies anxiety or depression. All systems reviewed & are unremarkable except as noted in HPI and below PMFSH Past Medical History Medical History (Updated 10/15/20 @ 06:33 by Florin Rodgers MD) Asthma Polysubstance abuse Tobacco abuse Surgical History Surgical History Previous section Family History Family History Father Hypertension Social History Social History Smoking status: Former smoker Tobacco type: cigarettes Alcohol intake: never Substance use type: marijuana Other substance usage details: States that she has also used methamphetamines. Last use: Roughly 1 month ago. Gender identity (if verbalized by the patient): Female Exam Narrative: Exam Narrative: GENERAL: Well-appearing, well-nourished, and in no acute distress. HEAD: Normocephalic, atraumatic. EYES: PERRLA and EOMI. ENT: Nares clear, no rhinorrhea or epistaxis. Mucous membranes moist. NECK: Supple. CHEST: Scattered wheezes bilaterally. No respiratory distress. HEART: Regular rate and rhythm. No murmur heard. Normal peripheral pulses. ABDOMEN: Soft, nontender, nondistended, normal active bowel sounds. EXTREMITIES: Normal range of motion. No edema. SKIN: Warm, dry, no rash. NEURO: No focal deficits. Alert and oriented x3. PSYCH: Normal mood and affect. Course Course Emergency Course: Patient was given a course of prednisone and will be given a prescription for an albuterol inhaler. Chest x-ray shows no evidence of infiltrate Vital Signs Vital signs: Vital Signs Temperature 36.8 C 10/15/20 06:17 Temperature 36.8 C 10/15/20 06:17 Pulse Rate 77 10/15/20 06:26 Respiratory Rate 15 10/15/20 06:26 Blood Pressure 149/99 H 10/15/20 06:26 Pulse Oximetry 99 10/15/20 06:26 Discharge Plan Discharge Clinical Impression: Asthma with acute exacerbation Qualifiers: Asthma severity: moderate Asthma persistence: unspecified Qualified Code(s): J45.901 - Unspecified asthma with (acute) exacerbation Patient Disposition: Home, Self-Care Condition: Stable Instructions: Antibiotic Form, Asthma (ED) Prescriptions: New albuterol sulfate 90 mcg/actuation HFA aerosol inhaler 2 puff inhalation QID PRN (Reason: shortness of breath or wheezing) Qty: 18 RF: 0 prednisone 20 mg tablet 40 mg PO DAILY 5 Days Qty: 10 RF: 0 prednisone 20 mg tablet
[2020-10-15] MEDS: predniSONE 20 MG TABLET 60 MG PO (06:35)
[2020-10-15] MEDS: ALBUTEROL SULFATE (*SP) INHALER 2 PUFF INHALATION (06:41)
[2020-10-15 07:01] VITALS: BP 118/58; PULSE 91; RESP 21; TEMP 36.7; O2SAT 97
[2020-10-15 19:25] LABS: SARS-CoV-2 RNA PCR Negative
== END 2020-10-15 07:24 | disposition home or self-care (01) ==
PROVIDERS: Emergency Provider Emergency Medicine
DX: J45.901 Unspecified asthma with (acute) exacerbation (principal); Z20.828 Contact with and (suspected) exposure to other viral communicable diseases; Z87.891 Personal history of nicotine dependence
CPT/HCPCS: 71045; 87635; 99283; A9270; C9803; J7512; U0003

== ENCOUNTER 2021-05-17 19:52 | Emergency (ER) | payer OTHER, SELFPAY ==
--- NOTE | 2021-05-17 19:54 | ED.URI ---
HPI - URI/Sore Throat General Chief Complaint: Upper Respiratory Infection Stated Complaint: cough Time Seen by Provider: 05/17/21 19:54 Source: patient and RN notes reviewed History of Present Illness HPI Narrative: Patient is a 25-year-old female who presents the urgent care with complaints of a 4-day history of a cough. Patient states that she does have asthma and it has been causing some worsening issues. Patient currently denies of any shortness of breath or audible wheezing. Denies of any fevers. Denies of any other upper respiratory complaints. No other acute complaints. No acute distress noted. Patient aware of the plan of care. Some parts of this dictation were generated by voice recognition software and may contain typographical and/or grammatical inaccuracies. Related Data Allergies Allergy/AdvReac Type Severity Reaction Status Date / Time Sulfa (Sulfonamide Allergy Unknown Unknown Verified 10/15/20 06:16 Antibiotics) Review of Systems Review of Systems: Narrative: CONSTITUTIONAL: Denies fever, chills, or sweats. EYES: Denies visual changes, redness, or discharge. ENT: Denies rhinorrhea, congestion, sore throat, or otalgia. CARDIOVASCULAR: Denies chest pain, palpitations, or edema. RESPIRATORY: Reports a productive cough with intermittent chronic dyspnea GASTROINTESTINAL: Denies abdominal pain, nausea, vomiting, or diarrhea. GENITOURINARY: Denies dysuria or hematuria. SKIN: Denies rash or itching. MUSCULOSKELETAL: Denies back pain, joint pain, or myalgia. NEUROLOGIC: Denies headache, numbness, or weakness. All other systems reviewed are negative, except as documented in HPI. [facility] Past Medical History Medical History (Updated 05/17/21 @ 20:02 by GARCIA Myles) Asthma Polysubstance abuse Tobacco abuse Surgical History Surgical History Previous section Family History Family History Father Hypertension Social History Social History Smoking status: Former smoker Tobacco type: cigarettes Alcohol intake: never Substance use type: marijuana Other substance usage details: States that she has also used methamphetamines. Last use: Roughly 1 month ago. Gender identity (if verbalized by the patient): Female Comments At the time of my signature, I reviewed and agree with the nursing past medical, surgical, social, and family history. There is no relevant family history pertinent to the patient complaint. Exam Narrative: Exam Narrative: GENERAL: This is a well-nourished, well-developed patient, in no apparent distress. HEAD: normocephalic, atraumatic. EYES: PERRL. Sclera clear/white. Vision is grossly intact. EARS: External ears normal, auditory canals clear and without drainage, TMs normal without perforation. Hearing grossly intact. NOSE: External nose normal with no obvious nasal discharge, nares without redness, no rhinorrhea. THROAT: Mucous membranes moist, posterior pharynx clear. Moderate postnasal drainage NECK: Neck supple CARDIOVASCULAR: Regular rate and rhythm without murmurs, gallops, or rubs. RESPIRATORY: Mild expiratory wheezes throughout with notable productive cough on exam SKIN: warm, intact with no suspicious lesions or rash, good texture and turgor. NEURO: awake, alert, and oriented to person, place and time. There were no obvious focal neurologic abnormalities. EXTREMITIES: No clubbing, cyanosis, or edema. Course Vital Signs Vital signs: Vital Signs Temperature 97.7 F 05/17/21 19:59 Pulse Rate 73 05/17/21 19:59 Respiratory Rate 18 05/17/21 19:59 Blood Pressure 129/80 05/17/21 19:59 Pulse Oximetry 97 05/17/21 19:59 Temperature 97.7 F 05/17/21 19:59 Pulse Rate 73 05/17/21 19:59 Respiratory Rate 18 05/17/21 19:59 Blood Pressure 129/80
[2021-05-17 19:59] VITALS: BP 129/80; PULSE 73; RESP 18; TEMP 36.5; O2SAT 97
== END 2021-05-17 20:03 | disposition home or self-care (01) ==
PROVIDERS: Emergency Provider Nurse Practitioner Family
DX: J40 Bronchitis, not specified as acute or chronic (principal); Z87.891 Personal history of nicotine dependence; J45.909 Unspecified asthma, uncomplicated
CPT/HCPCS: 99213; G0463

== ENCOUNTER 2021-11-08 18:32 | Emergency (ER) | payer OTHER, SELFPAY ==
[2021-11-08 18:43] VITALS: BP 136/91; PULSE 106; RESP 16; TEMP 36.7; O2SAT 98
--- NOTE | 2021-11-08 20:01 | PC.NURSE ---
no answer x1 for room
--- NOTE | 2021-11-08 20:24 | PC.NURSE ---
no answer x2 for room
== END 2021-11-09 01:06 | disposition left against medical advice (07) ==
PROVIDERS: PCP Nurse Practitioner Family
DX: R06.02 Shortness of breath (principal); Z20.822 Contact with and (suspected) exposure to COVID-19
CPT/HCPCS: 99199

== ENCOUNTER 2021-11-09 10:10 | Emergency (ER) | payer OTHER, SELFPAY ==
--- NOTE | 2021-11-09 10:32 | ED.URI ---
HPI - URI/Sore Throat General Chief Complaint: Upper Respiratory Infection Stated Complaint: fever,chills,cough Time Seen by Provider: 11/09/21 10:32 Source: patient and RN notes reviewed History of Present Illness HPI Narrative: Patient is a 26-year-old female who presents the urgent care with complaints of subjective fever, chills and dry cough. Patient states that she has been taking ibuprofen for her symptoms. Patient states that her [id number] and her 3 children were all diagnosed with Covid 2 days ago and they have been with each other all week. Patient states her symptoms started 3 days ago. Patient has not been Covid vaccinated. Patient denies of any shortness of breath or chest pain. No other acute complaints. No acute distress noted. Patient aware of the plan of care. Some parts of this dictation were generated by voice recognition software and may contain typographical and/or grammatical inaccuracies. Related Data Allergies Allergy/AdvReac Type Severity Reaction Status Date / Time Sulfa (Sulfonamide Allergy Unknown Unknown Verified 11/09/21 10:51 Antibiotics) Review of Systems Review of Systems: CONSTITUTIONAL: Reports of chills and sweats with subjective fever EYES: Denies visual changes, redness, or discharge. ENT: Denies rhinorrhea, otalgia. Reports a scratchy throat and mild congestion CARDIOVASCULAR: Denies chest pain, palpitations, or edema. RESPIRATORY: Reports of dry cough without dyspnea GASTROINTESTINAL: Denies abdominal pain, nausea, vomiting, or diarrhea. GENITOURINARY: Denies dysuria or hematuria. SKIN: Denies rash or itching. MUSCULOSKELETAL: Denies back pain, joint pain, or myalgia. NEUROLOGIC: Denies headache, numbness, or weakness. All other systems reviewed are negative, except as documented in HPI. [facility] Past Medical History Medical History (Updated 11/09/21 @ 11:07 by GARCIA Myles) Asthma Polysubstance abuse Tobacco abuse Surgical History Surgical History Previous section Family History Family History Father Hypertension Social History Social History Smoking status: Former smoker Tobacco type: cigarettes Alcohol intake: never Substance use type: marijuana Other substance usage details: States that she has also used methamphetamines. Last use: Roughly 1 month ago. Gender identity (if verbalized by the patient): Female Comments At the time of my signature, I reviewed and agree with the nursing past medical, surgical, social, and family history. There is no relevant family history pertinent to the patient complaint. Exam Narrative: GENERAL: This is a well-nourished, well-developed patient, in no apparent distress. HEAD: normocephalic, atraumatic. EYES: PERRL. Sclera clear/white. Vision is grossly intact. EARS: External ears normal, auditory canals clear and without drainage, TMs normal without perforation. Hearing grossly intact. NOSE: External nose normal with no obvious nasal discharge, nares without redness, clear to yellow rhinorrhea. THROAT: Mucous membranes moist, moderate erythema noted to posterior oropharynx with moderate postnasal drainage NECK: Neck supple CARDIOVASCULAR: Regular rate and rhythm without murmurs, gallops, or rubs. RESPIRATORY: Coarse expiratory throughout with slight bibasilar wheezes. SKIN: warm, intact with no suspicious lesions or rash, good texture and turgor. NEURO: awake, alert, and oriented to person, place and time. There were no obvious focal neurologic abnormalities. EXTREMITIES: No clubbing, cyanosis, or edema. Course Vital Signs Vital signs: Vital Signs Temperature 97.4 F L 11/09/21 10:40 Pulse Rate 110 H 11/09/21 10:40 Respiratory Rate 18 11/09/21 10:40 Blood Pressure 132/92 H 11/09/21 10:40 Pulse Ox
[2021-11-09 10:40] VITALS: BP 132/92; PULSE 110; RESP 18; TEMP 36.3; O2SAT 98
== END 2021-11-09 11:12 | disposition home or self-care (01) ==
PROVIDERS: Emergency Provider Nurse Practitioner Family; PCP Nurse Practitioner Family
DX: U07.1 COVID-19 (principal); Z87.891 Personal history of nicotine dependence
CPT/HCPCS: 87426; 99213; C9803; G0463

== ENCOUNTER 2021-11-30 16:02 | Emergency (ER) | payer OTHER, SELFPAY ==
[2021-11-30 16:09] VITALS: BP 113/65; PULSE 106; RESP 18; TEMP 36.3; O2SAT 100
--- NOTE | 2021-11-30 16:43 | ED.URI ---
HPI - URI/Sore Throat General Chief Complaint: Upper Respiratory Infection Stated Complaint: Sore Throat Time Seen by Provider: 11/30/21 16:36 Source: patient and RN notes reviewed Mode of arrival: ambulatory Limitations: no limitations History of Present Illness HPI Narrative: Patient presents today complaining of a sore throat x3 days with bilateral ear pain. Denies any additional symptoms. She currently rates her pain 8/10 and has been taking ibuprofen without much relief. She also took 2 doses of a friend's amoxicillin. MD elicited complaint: sore throat Related Data Allergies Allergy/AdvReac Type Severity Reaction Status Date / Time Sulfa (Sulfonamide Allergy Unknown Unknown Verified 11/30/21 16:21 Antibiotics) Review of Systems Review of Systems: CONSTITUTIONAL: Denies body aches, fever, chills, or sweats. EYES: Denies visual changes, redness, or discharge. ENT: Denies rhinorrhea, congestion.+ Sore throat, ear pain CARDIOVASCULAR: Denies chest pain, palpitations, or edema. RESPIRATORY: Denies cough or dyspnea. GASTROINTESTINAL: Denies abdominal pain, nausea, vomiting, or diarrhea. GENITOURINARY: Denies dysuria or hematuria. SKIN: Denies rash, itching, or wounds. MUSCULOSKELETAL: Denies back pain, joint pain, or myalgia. NEUROLOGIC: Denies headache, numbness, tingling, or weakness. PSYCH: Denies depression or anxiety. [facility] Past Medical History Medical History (Updated 11/30/21 @ 16:49 by Tricia Mandujano, [employer], ) Asthma Polysubstance abuse Tobacco abuse Surgical History Surgical History (Reviewed 11/30/21 @ 16:43 by Tricia Mandujano, [facility], ) Previous section Family History Family History (Reviewed 11/30/21 @ 16:43 by Tricia Mandujano, [facility], ) Father Hypertension Social History Social History (Reviewed 11/30/21 @ 16:43 by Tricia Mandujano, [facility], ) Smoking status: Former smoker Tobacco type: cigarettes Alcohol intake: never Substance use type: marijuana Other substance usage details: States that she has also used methamphetamines. Last use: Roughly 1 month ago. Gender identity (if verbalized by the patient): Female Comments At time of signature, I have reviewed and agree with nursing past medical, surgical, social and family history unless otherwise noted. Please see nursing chart for further information. There is no relevant family history pertinent to the presenting complaint Exam Narrative: GENERAL: Well-appearing, well-nourished, and in no acute distress. HEAD: Normocephalic, atraumatic. EYES: EOMI. No redness or drainage. Conjunctivae normal. ENT: Mucous membranes pink and moist. Nares clear. No rhinorrhea. TMs normal bilaterally. Throat erythematous and edematous. Tonsils 3-4+ with white exudate. Uvula midline. NECK: Normal AROM. Supple. Bilateral anterior cervical chain lymphadenopathy.. CHEST: No respiratory distress. Clear to auscultation. HEART: Regular rate and rhythm. No murmur appreciated. Normal peripheral pulses. EXTREMITIES: Normal range of motion. No edema. SKIN: Warm, dry, no rash. Capillary refill normal. Normal skin turgor. NEURO: No focal deficits. Alert and oriented x3. Gait steady. PSYCH: Normal affect. No signs of depression or anxiety. Course Course Level of Care: Express Care Visit Vital Signs Vital signs: Vital Signs Temperature 97.3 F L 11/30/21 16:09 Pulse Rate 106 H 11/30/21 16:09 Respiratory Rate 18 11/30/21 16:09 Blood Pressure 113/65 11/30/21 16:09 Pulse Oximetry 100 11/30/21 16:09 Temperature 97.3 F L 11/30/21 16:09 Pulse Rate 106 H 11/30/21 16:09 Respiratory Rate 18 11/30/21 16:09 Blood Pressure 113/65 11/30/21 16:09 Pulse Oximetry 100 11/30/21 16:09 Reviewed MDM - URI/Sore Throat Differential Diagnosis Differential diagnosis: Likely upper respiratory infection, viral infection, pharyngitis and other (Strep throat) Lab Data Attestation: I reviewed the patient's lab
== END 2021-11-30 16:55 | disposition home or self-care (01) ==
PROVIDERS: Emergency Provider Nurse Practitioner; PCP Nurse Practitioner Family
DX: J02.0 Streptococcal pharyngitis (principal); J45.909 Unspecified asthma, uncomplicated; Z87.891 Personal history of nicotine dependence
CPT/HCPCS: 87880; 99213; G0463

== ENCOUNTER 2022-05-26 17:29 | Emergency (ER) | payer OTHER, SELFPAY ==
[2022-05-26 17:37] VITALS: BP 119/74; PULSE 72; RESP 16; TEMP 36.5; O2SAT 100
--- NOTE | 2022-05-26 17:42 | ED.DENTAL ---
HPI - Dental/Oral General Chief complaint: Dental/Oral Stated complaint: Tooth Pain Time Seen by Provider: 05/26/22 17:43 Mode of arrival: ambulatory Limitations: no limitations History of Present Illness HPI Narrative: 26-year-old female presents with concern for dental pain. She reports left upper dental pain. Reports she also has wisdom tooth coming in on the left lower side that is uncomfortable. She reports she broke the tooth on the left upper side a while ago, however the pain just started recently with mild left cheek swelling. She reports the pain is radiating to her ear and down her neck. She reports she tried topical treatment without relief. She reports has been taking Tylenol without relief. She reports she is currently without housing. She has Medicaid but does not have dental insurance. MD Complaint: tooth pain Related Data Allergies Allergy/AdvReac Type Severity Reaction Status Date / Time Sulfa (Sulfonamide Allergy Unknown Unknown Verified 11/30/21 16:21 Antibiotics) Review of Systems Review of Systems: CONSTITUTIONAL: Denies malaise, chills, sweats, or fever. EYES: Denies visual changes ENT: Denies rhinorrhea, congestion, sinus pain or sore throat. Reports left dental pain that radiates to the left ear and neck CARDIOVASCULAR: Denies chest pain, palpitations RESPIRATORY: Denies cough or dyspnea. SKIN: Denies rash or itching. MUSCULOSKELETAL: Denies myalgia. NEUROLOGIC: Denies numbness, weakness, or headache. All systems reviewed & are unremarkable except as noted in HPI and below PMFSH Past Medical History Medical History (Updated 05/26/22 @ 17:58 by Mihaela Story NP) Asthma Polysubstance abuse Tobacco abuse Surgical History Surgical History Previous section Family History Family History Father Hypertension Social History Social History Smoking status: Former smoker Tobacco type: cigarettes Alcohol intake: never Substance use type: marijuana Other substance usage details: States that she has also used methamphetamines. Last use: Roughly 1 month ago. Gender identity (if verbalized by the patient): Female Comments At time of signature, agree with nursing past medical, surgical, social and family history. There is no relevant family history pertinent to the presenting complaint Exam Narrative: GENERAL: Nontoxic-appearing and in no acute distress. HEAD: Normocephalic, atraumatic. EYES: PERRLA, sclera clear ENT: Nares clear, turbinates pink, no rhinorrhea or epistaxis. Mucous membranes moist. TM pearly canseco with sharp light reflex bilaterally; no tragal tenderness. Oropharynx without erythema or lesions. Tonsils not enlarged and without exudate. Caries noted, tooth #17 and 16 appear impacted. Slight left cheek swelling noted NECK: Supple. No lymphadenopathy. CHEST: No respiratory distress. Speaks in full sentences. HEART: Regular rate and rhythm. SKIN: Warm, dry. Many generalized wounds/scabs in various stages of healing NEURO: Alert and oriented x3. PSYCH: Tearful Course Course Emergency Course: Patient is aware of diagnosis, understands and agrees to treatment plan. Anticipatory guidance given. Patient agrees to follow-up as directed and is aware of reasons to seek care at the emergency department. Portions of this record may have been created with voice recognition software Level of Care: Express Care Visit Vital Signs Vital signs: Reviewed. Procedures Nerve Block Nerve Block 1: Nerve block date: 05/26/22 Nerve block time: 17:50 Time out performed: Yes Local Anesthetic: lidocaine 1% Amount of anesthesia used (mL): 5 Side: left Intraoral Nerve Block: superior alveolar Procedure Successful: Yes Patie
== END 2022-05-26 18:02 | disposition home or self-care (01) ==
PROVIDERS: Emergency Provider Nurse Practitioner; PCP Nurse Practitioner Family
DX: K08.89 Other specified disorders of teeth and supporting structures (principal); Z87.891 Personal history of nicotine dependence; J45.909 Unspecified asthma, uncomplicated
CPT/HCPCS: 64999; 99213; G0463

== ENCOUNTER 2022-09-08 17:57 | Emergency (ER) | payer OTHER, SELFPAY ==
--- NOTE | 2022-09-08 18:05 | ED.SKABFB ---
HPI - Skin/Abscess/Foreign Bdy General Chief complaint: Skin/Abscess/Foreign Body Stated complaint: Sore on nose, sores on tops of foot Time Seen by Provider: 09/08/22 18:05 Source: patient, RN notes reviewed and old records reviewed Mode of arrival: ambulatory Limitations: no limitations History of Present Illness HPI narrative: 26-year-old female presents to the [facility] with complaints of a sore to her nose that she stated was a pimple 3-4 days ago, tried popping it now it is red and oozing . States that she broke her foot 1 week ago. Currently wearing her boot. 3 days ago developed a scabbed area to the 4th dorsal toe right foot. Bruising noted to the second toe right foot. Left foot toes 1,2,3 swollen, a couple scabbed areas. Area between toe 1 and 2 has induration, white sloughing of skin. Related Data Home Medications Medication Instructions Recorded Confirmed tramadol 50 mg tablet 50 mg DIRECTED 09/08/22 09/08/22 Allergies Allergy/AdvReac Type Severity Reaction Status Date / Time Sulfa (Sulfonamide Allergy Unknown Unknown Verified 11/30/21 16:21 Antibiotics) Review of Systems Review of Systems: All systems reviewed & are unremarkable except as noted in HPI and below Constitutional: Constitutional: Reports no additional constitutional complaints, Denies chills and Denies fever(s) Eyes: Eyes: Reports no additional eye complaints ENT: Reports system reviewed and no additional complaints, except as documented Cardiovascular: Cardiovascular: Reports no additional cardiovascular complaints Respiratory: Respiratory: Reports no additional respiratory complaints Gastrointestinal: Gastrointestinal: Reports no additional gastrointestinal complaints Musculoskeletal: Musculoskeletal: Reports no additional musculoskeletal complaints Integumentary/Breasts: Skin/Breast: Reports as per HPI Neurologic: Reports system reviewed and no additional complaints, except as documented Psychiatric: Psychiatric: Reports no additional psychiatric complaints Allergic/Immunologic: Allergic/Immunologic: Reports no additional allergic/immunologic complaints [facility] Past Medical History Medical History (Updated 09/08/22 @ 18:49 by Mihaela Aragon APRN) Asthma Polysubstance abuse Tobacco abuse Surgical History Surgical History Previous section Family History Family History Father Hypertension Social History Social History Smoking status: Former smoker Tobacco type: cigarettes Alcohol intake: never Substance use type: marijuana Other substance usage details: States that she has also used methamphetamines. Last use: Roughly 1 month ago. Gender identity (if verbalized by the patient): Female Comments At the time of my signature, I reviewed and agree with the nursing past medical, surgical, social, and family history. There is no relevant family history pertinent to the patient complaint. Exam Const: General: healthy appearing, no acute distress, alert and well nourished Nutritional Appearance: well nourished Orientation/consciousness: patient oriented x3 Limitations: no limitations HENMT: Head: normal to inspection Ears: external ears normal Eyes: General: appearance normal, both eyes and all related structures Pupils: Equal, round and reactive pupils present Neck: Neck: normal visual inspection, no lymphadenopathy and no meningeal signs Chest: Chest palpation & inspection: normal inspection of the chest Resp: Effort & Inspection: normal respiratory effort and no use of accessory muscles Auscultation: clear to auscultation bilaterally, no crackles, no rales, no rhonchi and no wheezes Cardio: Rate: regular rate Rhythm: regular rhythm Skin: General skin exam: normal color Rashes: no rashes Other: On bridge of
[2022-09-08 18:07] VITALS: BP 115/67; PULSE 98; RESP 16; TEMP 36.9; O2SAT 100
== END 2022-09-08 18:34 | disposition home or self-care (01) ==
PROVIDERS: Emergency Provider Nurse Practitioner
DX: J34.0 Abscess, furuncle and carbuncle of nose (principal); L03.115 Cellulitis of right lower limb; Z87.891 Personal history of nicotine dependence
CPT/HCPCS: 87070; 87075; 87147; 87181; 87186; 87205; 99213; G0463

== ENCOUNTER 2023-08-04 21:40 | Emergency (ER) | payer OTHER, SELFPAY ==
[2023-08-04 21:43] VITALS: BP 132/89; PULSE 86; RESP 20; TEMP 37; O2SAT 98
--- NOTE | 2023-08-04 21:59 | PC.NURSE ---
EDP at bedside to assess pt.
--- NOTE | 2023-08-04 22:08 | ED.GENADULT ---
HPI - General Adult General Chief complaint: Dental/Oral Stated complaint: dental pain Time Seen by Provider: 08/04/23 21:55 Source: patient Mode of arrival: ambulatory Limitations: no limitations History of Present Illness HPI narrative: This is a 27-year-old female who presents to the ED with chief complaint of left-sided dental pain onset x3 months and worse today. Patient reports that she feels pain in the left lower and left upper mouth. Reports the pain is now radiating towards the left ear. She reports some lymph node swelling and pain in the left jaw area. States she does not have a dentist and does not know the last time she saw one. Denies fevers, chills, nausea, vomiting, headache, LOC, trismus, drooling. Related Data Home Medications Medication Instructions Recorded Confirmed tramadol 50 mg tablet 50 mg DIRECTED 09/08/22 09/08/22 Allergies Allergy/AdvReac Type Severity Reaction Status Date / Time Sulfa (Sulfonamide Allergy Unknown Unknown Verified 08/04/23 21:50 Antibiotics) Review of Systems Review of Systems: All systems as dictated in [facility] Past Medical History Medical History (Updated 08/05/23 @ 00:00 by John Singleton) Asthma Polysubstance abuse Tobacco abuse Surgical History Surgical History Previous section Family History Family History Father Hypertension Social History Social History Smoking status: Former smoker Tobacco type: cigarettes Alcohol intake: never Substance use type: marijuana Other substance usage details: States that she has also used methamphetamines. Last use: Roughly 1 month ago. Gender identity (if verbalized by the patient): Female Exam Narrative: GENERAL: Well-appearing, well-nourished, and in no acute distress. HEAD: Normocephalic, atraumatic. EYES: PERRLA and EOMI. ENT: Mild left mandibular lymphadenopathy. The lower posterior most molar is impacted. The left upper molars have surrounding erythema in the gums. No identifiable abscess detected. No facial swelling or tenderness. nares clear, no rhinorrhea or epistaxis. Mucous membranes moist. Oropharynx without tonsillar hypertrophy exudate or other lesions. NECK: Supple. No adenopathy or masses. CHEST: No respiratory distress. Clear to auscultation. No wheezes rales or rhonchi HEART: Regular rate and rhythm. No murmur heard. Normal peripheral pulses. ABDOMEN: Soft, nontender, nondistended, normal active bowel sounds. MSK: Normal range of motion. No edema. SKIN: Warm, dry, no rash. NEURO: Alert and oriented x3. No focal deficits. PSYCH: Normal mood and affect. Course Vital Signs Vital signs: Vital Signs Temperature 98.6 F 08/04/23 21:43 Pulse Rate 86 08/04/23 21:43 Respiratory Rate 20 08/04/23 21:43 Blood Pressure 132/89 08/04/23 21:43 Pulse Oximetry 98 08/04/23 21:43 Oxygen Delivery Room Air 08/04/23 21:43 Temperature 98.6 F 08/04/23 21:43 Pulse Rate 86 08/04/23 21:43 Respiratory Rate 20 08/04/23 21:43 Blood Pressure 132/89 08/04/23 21:43 Pulse Oximetry 98 08/04/23 21:43 Oxygen Delivery Room Air 08/04/23 21:43 Medical Decision Making MDM Narrative Medical decision making narrative: This is a 27-year-old female who presents to the ED with chief complaint of dental pain ongoing for the past 3 months and worse today. Vitals are normal. Exam does show impacted molars on the left lower and mild swelling to the left upper molars. No identifiable abscess on exam. Floor the mouth is intact. She is afebrile. She showed significant improvement with pain medications here in the ED. Prescription for Augmentin given. Dental referral given. Pt will be discharged in stable condition. Return precautions given and supportive measures dis
[2023-08-04] MEDS: KETOROLAC 30 MG/ML VIAL (*BKC) IM (22:21)
[2023-08-04] MEDS: AMOXICILLIN/CLAVULANATE K 875-125 MG TAB 1 TABLET PO (22:21)
[2023-08-04] MEDS: HYDROcodone/acetaminophen (*CRX) 5-325 MG TABLET 1 TAB PO (22:21)
== END 2023-08-04 23:06 | disposition home or self-care (01) ==
PROVIDERS: Emergency Provider Physician Assistant
DX: K08.89 Other specified disorders of teeth and supporting structures (principal); Z87.891 Personal history of nicotine dependence
CPT/HCPCS: 96372; 99283; A9270; J1885